=== PATIENT | male | born 1980 | race Caucasian/White ===

== ENCOUNTER → 2017-01-20 | Outpatient (CLI) | payer OTHER ==
--- NOTE | 2017-01-21 07:31 | MR ---
EXAMINATION TYPE: MR lumbar spine wo con DATE OF EXAM: 01/20/2017 COMPARISON: NONE HISTORY: Low Back pain [id number] TECHNIQUE: T1 and T2 axial and sagittal images of the lumbar spine are submitted. FINDINGS: There is no abnormal signal seen within the visualized spinal cord or paraspinal soft tissu es. Subcentimeter tiny nodule right adrenal gland likely related to benign adenoma. At L1-2 there is no disc herniation, degenerative disc disease, canal stenosis, or foraminal encroach ment. At L2-3 there is mild degenerative disc disease. No disc herniation or canal stenosis. Neural foramin a patent. Schmorl's node involving superior endplate L3 At L3-4 there is degenerative disc disease but no canal stenosis. Mild hypertrophic change of the fac ets. Neural foramina patent At L4-5 there is degenerative disc disease with mild hypertrophic change of the facets. No Canal sten osis or foraminal encroachment. Mild broad-based central disc bulging. At L5-S1 there is degenerative disc disease with mild central disc bulging but no canal stenosis or f oraminal encroachment. Schmorl's node superior endplate L5. IMPRESSION: 1. Suggestion of annular tear and right lateral disc bulging L5-S1 with mild facet arthropathy and mi ld right-sided foraminal encroachment. No Canal stenosis. 2. Broad-based central disc bulging L4-L5 with no canal stenosis or foraminal encroachment. 3. Multilevel degenerative disc disease. 4 subcentimeter tiny nodule right adrenal gland likely relat ed to adenoma
== END | disposition home or self-care (01) ==
LOC: RADMRIMAIN 16:38
PROVIDERS: ATTEND Family Medicine
DX: M51.26 Other intervertebral disc displacement, lumbar region (principal); M51.36 Other intervertebral disc degeneration, lumbar region
CPT/HCPCS: 72148

== ENCOUNTER 2017-07-09 20:56 | Emergency (ER) | payer OTHER ==
[2017-07-09 21:01] VITALS: BP 146/83; PULSE 87; RESP 20; TEMP 97.5
[2017-07-09] MEDS ORDERED: ASPIRIN 81 MG PO STA (21:41)
[2017-07-09] MEDS ORDERED: NITROGLYCERIN OINT 1 INCH/GM PACKET TOPICAL STA (21:41)
--- NOTE | 2017-07-09 21:43 | ED ---
General Adult HPI - General Chief complaint: Arrhythmia/Palpitations Stated complaint: racing heart Time Seen by Provider: 07/09/17 21:00 Source: patient, RN notes reviewed Mode of arrival: ambulatory Limitations: no limitations - History of Present Illness Initial comments: This is a 37-year-old male who presents emergency department with past medical history significant for smoking. Patient states he has no significant family history of heart disease. Patient denies diabetes hypertension high cholesterol. Patient states about 5 hours prior to arrival he was complaining of pressure on the left lateral aspect of his chest. Patient denies any shortness of breath. Patient states he just doesn't feel right. Patient denies any diaphoresis patient denies any nausea. Patient denies any arm pain. Patient denies any headache patient denies lightheadedness dizziness or near syncopal episode. Patient denies any palpitations. Patient states his chest pressure that is never felt before and movement does not seem to make it worse. Patient denies any abdominal pain patient denies vomiting or diarrhea. Patient denies any recent fever chills or cough. Patient denies any leg swelling or calf pain - Related Data Home Medications Medication Instructions Recorded Confirmed Buprenorphine HCl/Naloxone HCl 1 film SL DAILY 07/09/17 07/09/17 [Suboxone 2 mg-0.5 mg Sl Film] Buprenorphine HCl/Naloxone HCl 1 film SL DAILY 07/09/17 07/09/17 [Suboxone 4 mg-1 mg Sl Film] Ibuprofen [Motrin] 800 mg PO TID PRN 07/09/17 07/09/17 QUEtiapine [SEROquel] 100 mg PO HS 07/09/17 07/09/17 Allergies Allergy/AdvReac Type Severity Reaction Status Date / Time No Known Allergies Allergy Verified 07/09/17 21:40 Review of Systems ROS Statement: Those systems with pertinent positive or pertinent negative responses have been documented in the HPI. ROS Other: All systems not noted in ROS Statement are negative. Past Medical History Past Medical History: No Reported History Additional Past Medical History / Comment(s): Pain in knees bilaterally History of Any Multi-Drug Resistant Organisms: None Reported Past Surgical History: No Surgical Hx Reported Past Psychological History: Anxiety Smoking Status: Current every day smoker Past Alcohol Use History: Occasional Past Drug Use History: Marijuana General Exam - General Exam Comments Initial Comments: GENERAL: Patient is well-developed and well-nourished. Patient is nontoxic and well- hydrated and is in mild distress. ENT: Neck is soft and supple. No significant lymphadenopathy is noted. Oropharynx is clear. Moist mucous membranes. Neck has full range of motion without eliciting any pain. EYES: The sclera were anicteric and conjunctiva were pink and moist. Extraocular movements were intact and pupils were equal round and reactive to light. Eyelids were unremarkable. PULMONARY: Unlabored respirations. Good breath sounds bilaterally. No audible rales rhonchi or wheezing was noted. CARDIOVASCULAR: There is a regular rate and rhythm without any murmurs gallops or rubs. ABDOMEN: Soft and nontender with normal bowel sounds. No palpable organomegaly was noted. There is no palpable pulsatile mass. SKIN: Skin is clear with no lesions or rashes and otherwise unremarkable. NEUROLOGIC: Patient is alert and oriented x3. Cranial nerves II through XII are grossly intact. Motor and sensory are also intact. Normal speech, volume and content. Symmetrical smile. MUSCULOSKELETAL: Normal extremities with adequate strength and full range of motion. No lower extremity swelling or edema. No calf tenderness. LYMPHATICS: No significant lymphadenopathy is noted PSYCHIATRIC: Normal psychiatric evaluation. Normal interpersonal interactions appears functionally intact in deals appropriately with others. No signs of depression. No signs of anxiety. Limitations: no limitations Course Vital Signs 07/09/17 20:57 Temperature 97.5 F L Pulse Rate 87 Respiratory 20 Rate Blood Pressure 146/83 O2 Sat by Pulse 100 Oximetry Medical Decision Making - Medical Decision Making EKG shows a normal sinus rhythm at 74 bpm NC interval 266 QRS on a 14 QT interval 392 QTC is 435 per patient's EKG shows no ST segment elevation or depression or T wave abnormalities are noted. Chest x-ray shows no acute abnormality. I spoke with the patient after his labs were back. Patient stated the Nitropaste seem to take away his pain. I told the patient I recommended highly that he stay in the emergency department however he stated he could not do that today. Patient states she can follow-up with his doctor on Monday. I again reiterated to the patient denies thought he needed to stay but he again said he could not and he will follow-up. Patient is aware that if he gets any more pain or difficulty breathing he would return immediately. - Lab Data Result diagrams: 07/09/17 21:40 07/09/17 21:40 Lab Results 07/09/17 07/09/17 07/09/17 Range/Units 21:40 21:40 21:40 WBC 8.5 (3.8-10.6) k/uL RBC 4.36 (4.30-5.90) m/uL Hgb 13.9 (13.0-17.5) gm/dL Hct 40.5 (39.0-53.0) % MCV 93.0 (80.0-100.0) fL MCH 31.8 (25.0-35.0) pg MCHC 34.2 (31.0-37.0) g/dL RDW 12.5 (11.5-15.5) % Plt Count 240 (150-450) k/uL Neutrophils % 43 % Lymphocytes % 47 % Monocytes % 5 % Eosinophils % 1 % Basophils % 1 % Neutrophils # 3.7 (1.3-7.7) k/uL Lymphocytes # 4.0 (1.0-4.8) k/uL Monocytes # 0.4 (0-1.0) k/uL Eosinophils # 0.1 (0-0.7) k/uL Basophils # 0.1 (0-0.2) k/uL PT (9.0-12.0) sec INR (<1.2) APTT (22.0-30.0) sec D-Dimer (<0.60) mg/L FEU Sodium 141 (137-145) mmol/L Potassium 4.2 (3.5-5.1) mmol/L Chloride 105 (98-107) mmol/L Carbon Dioxide 27 (22-30) mmol/L Anion Gap 9 mmol/L BUN 12 (9-20) mg/dL Creatinine 0.80 (0.66-1.25) mg/dL Est GFR (MDRD) Af Amer >60 (>60 ml/min/1.73 sqM) Est GFR (MDRD) Non-Af >60 (>60 ml/min/1.73 sqM) Glucose 86 (74-99) mg/dL Calcium 9.5 (8.4-10.2) mg/dL Magnesium 1.9 (1.6-2.3) mg/dL Total Bilirubin 0.3 (0.2-1.3) mg/dL AST 40 (17-59) U/L ALT 50 (21-72) U/L Alkaline Phosphatase 62 (38-126) U/L Total Creatine Kinase 311 H (55-170) U/L CK-MB (CK-2) 0.9 (0.0-2.4) ng/mL CK-MB (CK-2) Rel Index 0.3 Troponin I <0.012 (0.000-0.034) ng/mL Total Protein 6.6 (6.3-8.2) g/dL Albumin 4.2 (3.5-5.0) g/dL 07/09/17 Range/Units 21:40 WBC (3.8-10.6) k/uL RBC (4.30-5.90) m/uL Hgb (13.0-17.5) gm/dL Hct (39.0-53.0) % MCV (80.0-100.0) fL MCH (25.0-35.0) pg MCHC (31.0-37.0) g/dL RDW (11.5-15.5) % Plt Count (150-450) k/uL Neutrophils % % Lymphocytes % % Monocytes % % Eosinophils % % Basophils % % Neutrophils # (1.3-7.7) k/uL Lymphocytes # (1.0-4.8) k/uL Monocytes # (0-1.0) k/uL Eosinophils # (0-0.7) k/uL Basophils # (0-0.2) k/uL PT 9.6 (9.0-12.0) sec INR 1.0 (<1.2) APTT 24.3 (22.0-30.0) sec D-Dimer 0.19 (<0.60) mg/L FEU Sodium (137-145) mmol/L Potassium (3.5-5.1) mmol/L Chloride (98-107) mmol/L Carbon Dioxide (22-30) mmol/L Anion Gap mmol/L BUN (9-20) mg/dL Creatinine (0.66-1.25) mg/dL Est GFR (MDRD) Af Amer (>60 ml/min/1.73 sqM) Est GFR (MDRD) Non-Af (>60 ml/min/1.73 sqM) Glucose (74-99) mg/dL Calcium (8.4-10.2) mg/dL Magnesium (1.6-2.3) mg/dL Total Bilirubin (0.2-1.3) mg/dL AST (17-59) U/L ALT (21-72) U/L Alkaline Phosphatase (38-126) U/L Total Creatine Kinase (55-170) U/L CK-MB (CK-2) (0.0-2.4) ng/mL CK-MB (CK-2) Rel Index Troponin I (0.000-0.034) ng/mL Total Protein (6.3-8.2) g/dL Albumin (3.5-5.0) g/dL Disposition Clinical Impression: Unstable angina Disposition: Left Against Medical Advice Referrals: Ronaldo Felder MD [Primary Care Provider] - 1-2 days Time of Disposition: 22:54
[2017-07-09 21:58] LABS: Basophils # (A) 0.1 k/uL (0-0.2); Basophils % (A) 1 %; Eosinophils # (A) 0.1 k/uL (0-0.7); Eosinophils % (A) 1 %; HCT 40.5 % (39.0-53.0); HGB 13.9 gm/dL (13.0-17.5); Lymphocytes % (A) 47 %; MCH 31.8 pg (25.0-35.0); MCHC 34.2 g/dL (31.0-37.0); Mean Platelet Volume 6.7; Monocytes # (A) 0.4 k/uL (0-1.0); Monocytes % (A) 5 %; Neutrophils # (A) 3.7 k/uL (1.3-7.7); Neutrophils % (A) 43 %; Platelet Count 240 k/uL (150-450); RBC 4.36 m/uL (4.30-5.90); RDW 12.5 % (11.5-15.5); WBC 8.5 k/uL (3.8-10.6)
[2017-07-09 22:10] LABS: ALT 50 U/L (21-72); AST 40 U/L (17-59); Albumin 4.2 g/dL (3.5-5.0); Alkaline Phosphatase 62 U/L (38-126); Anion Gap 9 mmol/L; Blood Urea Nitrogen 12 mg/dL (9-20); Calcium 9.5 mg/dL (8.4-10.2); Carbon Dioxide 27 mmol/L (22-30); Chloride 105 mmol/L (98-107); Glucose 86 mg/dL (74-99); Magnesium 1.9 mg/dL (1.6-2.3); Potassium 4.2 mmol/L (3.5-5.1); Sodium 141 mmol/L (137-145); Total Bilirubin 0.3 mg/dL (0.2-1.3); Total Protein 6.6 g/dL (6.3-8.2)
[2017-07-09 22:14] LABS: D-Dimer 0.19 mg/L FEU (<0.60)
--- NOTE | 2017-07-09 22:14 | XR ---
EXAMINATION TYPE: XR chest 2V DATE OF EXAM: 07/09/2017 COMPARISON: NONE INDICATION: Chest pain TECHNIQUE: Frontal and lateral views of the chest are obtained. FINDINGS: The heart size is normal. The pulmonary vasculature is normal. The lungs are clear. There is good is Are present. EKG leads overlie the chest. IMPRESSION: 1. No acute pulmonary process.
[2017-07-09 22:24] LABS: Partial Thromboplastin Time 24.3 sec (22.0-30.0); Prothrombin Time 9.6 sec (9.0-12.0)
[2017-07-09 22:28] LABS: Creatine Kinase 311 U/L (55-170)
[2017-07-09 22:40] LABS: Creatine Kinase MB 0.9 ng/mL (0.0-2.4); Troponin I <0.012 ng/mL (0.000-0.034)
== END 2017-07-09 22:59 | disposition left against medical advice (07) ==
LOC: EC 20:56
DX: I20.0 Unstable angina (principal); F17.200 Nicotine dependence, unspecified, uncomplicated; Z79.899 Other long term (current) drug therapy
CPT/HCPCS: 36415; 71046; 80053; 82550; 82553; 83735; 84484; 85025; 85379; 85610; 85730; 93005; 99285

== ENCOUNTER 2019-02-19 00:28 | Emergency (ER) | payer OTHER ==
[2019-02-19 00:34] VITALS: RESP 18
--- NOTE | 2019-02-19 01:05 | XR ---
EXAMINATION TYPE: XR tibia fibula RT DATE OF EXAM: 02/19/2019 COMPARISON: NONE HISTORY: Fall. Pain. TECHNIQUE: 4 views FINDINGS: I see no fracture nor dislocation. Tibia and fibula appear intact. Joint spaces are normal. There are small plantar and Achilles calcaneal spurs. Tibia and fibula appear intact. IMPRESSION: Calcaneal spurring. No fracture seen.
[2019-02-19] MEDS ORDERED: ACET/COD 300 MG/30 MG STARTER PACK 6 TAB BTL PO STA (01:32)
--- NOTE | 2019-02-19 01:35 | ED ---
Lower Extremity Injury HPI - General Chief Complaint: Extremity Injury, Lower Stated Complaint: Fall, Leg Pain Time Seen by Provider: 02/19/19 01:17 Source: patient, RN notes reviewed Mode of arrival: wheelchair Limitations: no limitations - History of Present Illness Initial Comments: This a 38-year-old male presents emergency department with chief complaint of right leg pain. Patient states that the pain started after he fell going up the stairs. Patient states his handlebar broke. Patient states he twisted his leg but states he felt a pop in his upper calf region. He states he has no lower pain by his ankle or knee upper pain by his knee. Patient states that his calf is swollen and tender. Patient states she's had a tear in the past and feels very similar. Patient offers no other complaints no head injury no back pain no upper extremity injury. - Related Data Home Medications Medication Instructions Recorded Confirmed Buprenorphine HCl/Naloxone HCl 1 film SL DAILY 07/09/17 07/09/17 [Suboxone 2 mg-0.5 mg Sl Film] Buprenorphine HCl/Naloxone HCl 1 film SL DAILY 07/09/17 07/09/17 [Suboxone 4 mg-1 mg Sl Film] Ibuprofen [Motrin] 800 mg PO TID PRN 07/09/17 07/09/17 QUEtiapine [SEROquel] 100 mg PO HS 07/09/17 07/09/17 Allergies Allergy/AdvReac Type Severity Reaction Status Date / Time No Known Allergies Allergy Verified 02/19/19 00:34 Review of Systems ROS Statement: Those systems with pertinent positive or pertinent negative responses have been documented in the HPI. ROS Other: All systems not noted in ROS Statement are negative. Past Medical History Past Medical History: No Reported History Additional Past Medical History / Comment(s): Pain in knees bilaterally History of Any Multi-Drug Resistant Organisms: None Reported Past Surgical History: No Surgical Hx Reported Past Psychological History: Anxiety, Depression Smoking Status: Current every day smoker Past Alcohol Use History: None Reported Past Drug Use History: Marijuana General Exam Limitations: no limitations General appearance: alert, in no apparent distress Head exam: Present: atraumatic, normocephalic, normal inspection Respiratory exam: Present: normal lung sounds bilaterally. Absent: respiratory distress, wheezes, rales, rhonchi, stridor Cardiovascular Exam: Present: regular rate, normal rhythm, normal heart sounds. Absent: systolic murmur, diastolic murmur, rubs, gallop, clicks Extremities exam: Present: other (Right calf there is noted swelling, Achilles is nontender no distal leg pain normal Trevino's test, leg is neurovascularly intact no ecchymosis no erythema) Course Vital Signs 02/19/19 00:31 Temperature 97.6 F Pulse Rate 89 Respiratory 18 Rate Blood Pressure 130/66 O2 Sat by Pulse 97 Oximetry Medical Decision Making - Medical Decision Making 38-year-old male presented for right leg pain and for a fall. Tib-fib x-ray is obtained which is unremarkable. Patient is noted swelling and tenderness over the calf do not believe that he has Achilles tendon injury. Patient hasn't right calf strain. Patient leg will be wrapped and will follow-up with orthopedics. He understands the importance of following up with orthopedics at this time. Disposition Clinical Impression: Strain of right gastrocnemius muscle Disposition: HOME SELF-CARE Condition: Stable Instructions (If sedation given, give patient instructions): Muscle Strain (ED) Additional Instructions: Please return to the Emergency Department if symptoms worsen or any other concerns. Is patient prescribed a controlled substance at d/c from ED?: No Referrals: Ronaldo Felder MD [Primary Care Provider] - 1-2 days Jose Antonio Olsen MD [STAFF PHYSICIAN] - 1-2 days Time of Disposition: 01:35
[2019-02-19 02:02] VITALS: BP 125/62; PULSE 85; TEMP 98
== END 2019-02-19 02:02 | disposition home or self-care (01) ==
LOC: EC 00:28
DX: S86.811A Strain of other muscle(s) and tendon(s) at lower leg level, right leg, initial encounter (principal); F32.9 Major depressive disorder, single episode, unspecified; F41.9 Anxiety disorder, unspecified; F17.200 Nicotine dependence, unspecified, uncomplicated; Z79.899 Other long term (current) drug therapy; Z87.828 Personal history of other (healed) physical injury and trauma; W10.9XXA Fall (on) (from) unspecified stairs and steps, initial encounter; Y93.01 Activity, walking, marching and hiking; Y92.009 Unspecified place in unspecified non-institutional (private) residence as the place of occurrence of the external cause
CPT/HCPCS: 99283

== ENCOUNTER 2019-02-23 22:59 | Emergency (ER) | payer OTHER ==
[2019-02-23 23:12] VITALS: BP 120/73; PULSE 85; RESP 18; TEMP 98
--- NOTE | 2019-02-23 23:35 | ED ---
Recheck HPI - General Chief Complaint: Extremity Injury, Lower Stated Complaint: leg pain Time Seen by Provider: 02/23/19 23:12 Source: patient, RN notes reviewed, old records reviewed Mode of arrival: wheelchair Limitations: no limitations - History of Present Illness Initial Comments: This is a 38-year-old male the ER for evaluation resents today for evaluation regards to recheck wound recheck and right calf injury recheck. Patient was diagnosed with muscle strain after a fall muscle strain after a fall a few days ago, he did return to work but has had significant increase in swelling, ecchymosis and discoloration of that right lower extremity. Patient denies any complaints no other injuries. Full range of motion of foot, he is able to ambu late has good feeling and sensation. Patient denies any other complaints MD Complaint: wound re-check (Recheck of Toradol calf muscle, strained cast muscle) -: days(s) Returns Today for: wound recheck Symptoms Since Prior Visit: worsening pain, worsening swelling Context: planned re-check Associated Symptoms: none Treatments Prior to Arrival: other - Related Data Home Medications Medication Instructions Recorded Confirmed Buprenorphine HCl/Naloxone HCl 1 film SL DAILY 07/09/17 07/09/17 [Suboxone 2 mg-0.5 mg Sl Film] Buprenorphine HCl/Naloxone HCl 1 film SL DAILY 07/09/17 07/09/17 [Suboxone 4 mg-1 mg Sl Film] Ibuprofen [Motrin] 800 mg PO TID PRN 07/09/17 07/09/17 QUEtiapine [SEROquel] 100 mg PO HS 07/09/17 07/09/17 Allergies Allergy/AdvReac Type Severity Reaction Status Date / Time No Known Allergies Allergy Verified 02/23/19 23:12 Review of Systems ROS Statement: Those systems with pertinent positive or pertinent negative responses have been documented in the HPI. ROS Other: All systems not noted in ROS Statement are negative. Past Medical History Past Medical History: No Reported History Additional Past Medical History / Comment(s): Pain in knees bilaterally History of Any Multi-Drug Resistant Organisms: None Reported Past Surgical History: No Surgical Hx Reported Past Psychological History: Anxiety, Depression Smoking Status: Current every day smoker Past Alcohol Use History: None Reported Past Drug Use History: Marijuana General Exam Limitations: no limitations General appearance: alert, in no apparent distress Head exam: Present: atraumatic, normocephalic, normal inspection Eye exam: Present: normal appearance, PERRL, EOMI. Absent: scleral icterus, conjunctival injection, periorbital swelling ENT exam: Present: normal exam, mucous membranes moist Neck exam: Present: normal inspection. Absent: tenderness, meningismus, lymphadenopathy Respiratory exam: Present: normal lung sounds bilaterally. Absent: respiratory distress, wheezes, rales, rhonchi, stridor Cardiovascular Exam: Present: regular rate, normal rhythm, normal heart sounds. Absent: systolic murmur, diastolic murmur, rubs, gallop, clicks GI/Abdominal exam: Present: soft, normal bowel sounds. Absent: distended, tenderness, guarding, rebound, rigid Extremities exam: Present: normal inspection, full ROM, normal capillary refill, other (Patient does have bruising significant of right lower extremity. He is neurovascularly intact). Absent: tenderness, pedal edema, joint swelling, calf tenderness Back exam: Present: normal inspection Neurological exam: Present: alert, oriented X3, CN II-XII intact Psychiatric exam: Present: normal affect, normal mood Skin exam: Present: warm, dry, intact, normal color. Absent: rash Course Vital Signs 02/23/19 23:10 Temperature 98 F Pulse Rate 85 Respiratory 18 Rate Blood Pressure 120/73 O2 Sat by Pulse 97 Oximetry - Reevaluation(s) Reevaluation #1: 02/23/19 23:33 Record prior ER visit reviewed Reevaluation #2: 02/23/19 23:33 Just given counseling warning signs for increasing stiffness or hardness of calf, no evidence of compartment syndrome currently Medical Decision Making - Medical Decision Making 38 male the ER for evaluation patient resents today for evaluation regards to right leg pain and swelling ecchymosis Strain. Patient can be discharged home Disposition Clinical Impression: Right calf pain, Strain of right gastrocnemius muscle Disposition: HOME SELF-CARE Condition: Good Instructions (If sedation given, give patient instructions): Muscle Strain (ED) Is patient prescribed a controlled substance at d/c from ED?: No Referrals: Ronaldo Felder MD [Primary Care Provider] - 1-2 days
== END 2019-02-23 23:52 | disposition home or self-care (01) ==
LOC: EC 22:59
DX: S86.111D Strain of other muscle(s) and tendon(s) of posterior muscle group at lower leg level, right leg, subsequent encounter (principal); F32.9 Major depressive disorder, single episode, unspecified; F17.200 Nicotine dependence, unspecified, uncomplicated; Z79.891 Long term (current) use of opiate analgesic; Z79.899 Other long term (current) drug therapy; W19.XXXD Unspecified fall, subsequent encounter
CPT/HCPCS: 99283

== ENCOUNTER 2023-02-24 04:33 | Emergency (ER) | payer OTHER ==
[2023-02-24 04:50] VITALS: RESP 18; TEMP 98.4
[2023-02-24] MEDS ORDERED: FLUCONAZOLE 150 MG TAB PO STA (05:16)
[2023-02-24] MEDS ORDERED: SULFAMETHOX-TMP 800-160MG 1 EACH TAB PO STA (05:18)
--- NOTE | 2023-02-24 05:27 | ED ---
Skin/Abscess/FB HPI - General Chief complaint: Skin/Abscess/Foreign Body Stated complaint: Something on head Time Seen by Provider: 02/24/23 04:54 Source: patient Mode of arrival: ambulatory Limitations: no limitations - History of Present Illness Initial comments: 's patient is 42-year-old man who presents to have evaluation of a area of his scalp that is swollen, tender, and has discharge. Patient states that he was concerned about infection. He has not noted any systemic symptoms, no fever or chills. MD complaint: discoloration Onset/Timin -: days(s) Tetanus Up to Date: yes Location: head Consistency: constant Improves with: none Worsens with: none Context: none Treatments Prior to Arrival: attempted to drain pus at home - Related Data Home Medications Medication Instructions Recorded Confirmed Ibuprofen [Motrin] 800 mg PO TID PRN 07/09/17 02/23/19 QUEtiapine [SEROquel] 50 mg PO HS 07/09/17 02/23/19 Previous Rx's Medication Instructions Recorded Fluconazole [Diflucan] 100 mg PO DAILY #28 tab 02/24/23 Sulfamethox-Tmp 800-160Mg [Bactrim 1 tab PO Q12HR #14 tab 02/24/23 DS 800-160 mg] Allergies Allergy/AdvReac Type Severity Reaction Status Date / Time No Known Allergies Allergy Verified 02/23/19 23:33 Review of Systems ROS Statement: Those systems with pertinent positive or pertinent negative responses have been documented in the HPI. ROS Other: All systems not noted in ROS Statement are negative. Constitutional: Denies: fever, chills Respiratory: Denies: cough, dyspnea Cardiovascular: Denies: chest pain Gastrointestinal: Denies: abdominal pain Skin: Reports: as per HPI, lesions, change in color Neurological: Denies: headache, weakness Past Medical History Past Medical History: No Reported History Additional Past Medical History / Comment(s): Pain in knees bilaterally History of Any Multi-Drug Resistant Organisms: None Reported Past Surgical History: No Surgical Hx Reported Past Psychological History: Anxiety, Depression Smoking Status: Current every day smoker Past Alcohol Use History: Occasional Past Drug Use History: Marijuana General Exam Limitations: no limitations General appearance: alert, in no apparent distress Head exam: Present: atraumatic, normocephalic Eye exam: Present: normal appearance. Absent: scleral icterus, conjunctival injection ENT exam: Present: normal oropharynx, TM's normal bilaterally Neck exam: Present: normal inspection, full ROM. Absent: tenderness, meningismus, lymphadenopathy Neurological exam: Present: alert Skin exam: Present: warm, dry, other (The patient does have an approximately 2 x 3 cm area where the scalp is boggy, tender, there is some purulent drainage, and yellow crusting area) Course Vital Signs 02/24/23 02/24/23 04:37 06:16 Temperature 98.4 F Pulse Rate 83 81 Respiratory 18 18 Rate Blood Pressure 105/68 131/78 O2 Sat by Pulse 100 97 Oximetry Medical Decision Making - Medical Decision Making Patient's 42-year-old man presenting with what appears to be early area of Kerion though it may possibly be simple cellulitis. The patient is given antifungal and prescription and we discussed appropriate further care and follow-up. I did stress that this may lead to scarring and alopecia if it is not treated appropriately and the patient does express understanding and motivation. Discussed also having him follow with dermatology. Was pt. sent in by a medical professional or institution (, PA, SURVEY ANALYST, urgent care, hospital, or care home...) When possible be specific @ -[No] Did you speak to anyone other than the patient for history (EMS, parent, family, police, friend...)? What history was obtained from this source @ -[No] Did you review nursing and triage notes (agree or disagree)? Why? @ -[I reviewed and agree with nursing and triage notes] Were old charts reviewed (outside hosp., previous admission, EMS record, old EKG, old radiological studies, urgent care reports/EKG's, care home records)? Report findings @ -[No old charts were reviewed] Differential Diagnosis (chest pain, altered mental status, abdominal pain women, abdominal pain men, vaginal bleeding, weakness, fever, dyspnea, syncope, headache, dizziness, GI bleed, back pain, seizure, CVA, palpatations, mental health, musculoskeletal)? @ -[Differential diagnosis for the patient's rash includes small area of cellulitis versus Kerion EKG interpreted by me (3pts min.). @ -[ X-rays interpreted by me (1pt min.). @ -[None done] CT interpreted by me (1pt min.). @ -[None done] U/S interpreted by me (1pt. min.). @ -[None done] What testing was considered but not performed or refused? (CT, X-rays, U/S, labs)? Why? @ -[None] What meds were considered but not given or refused? Why? @ -[None] Did you discuss the management of the patient with other professionals (professionals i.e. Dr., PA, SURVEY ANALYST, lab, RT, psych nurse, social media assistant, construction trench digger, teacher, worldwide chief creative officer, disability case manager)? Give summary @ -[No] Was smoking cessation discussed for >3mins.? @ -[No] Was critical care preformed (if so, how long)? @ -[No] Were there social determinants of health that impacted care today? How? (Homelessness, low income, unemployed, alcoholism, drug addiction, transportation, low edu. Level, literacy, decrease access to med. care, shelter, rehab)? @ -[No] Was there de-escalation of care discussed even if they declined (Discuss DNR or withdrawal of care, Hospice)? DNR status @ -[No] What co-morbidities impacted this encounter? (DM, HTN, Smoking, COPD, CAD, Cancer, CVA, ARF, Chemo, Hep., AIDS, mental health diagnosis, sleep apnea, morbid obesity)? @ -[None] Was patient admitted / discharged? Hospital course, mention meds given and route, prescriptions, significant lab abnormalities, going to OR and other pertinent info. @ -[Discharged, see above Undiagnosed new problem with uncertain prognosis? @ -[No] Drug Therapy requiring intensive monitoring for toxicity (Heparin, Nitro, Insulin, Cardizem)? @ -[No] Were any procedures done? @ -[No] Diagnosis/symptom? @ -[Acute kerion Acute, or Chronic, or Acute on Chronic? @ -[default] Uncomplicated (without systemic symptoms) or Complicated (systemic symptoms)? @ -[Uncomplicated Side effects of treatment? @ -[No] Exacerbation, Progression, or Severe Exacerbation? @ -[No] Poses a threat to life or bodily function? How? (Chest pain, [place], [place], pneumonia, PE, COPD, DKA, ARF, appy, cholecystitis, CVA, Diverticulitis, Homicidal, Suicidal, threat to staff... and all critical care pts) @ -[No] Disposition Clinical Impression: Nikki Disposition: HOME SELF-CARE Condition: Good Instructions (If sedation given, give patient instructions): Skin Yeast Infection (ED) Prescriptions: Sulfamethox-Tmp 800-160Mg [Bactrim DS 800-160 mg] 1 tab PO Q12HR #14 tab Fluconazole [Diflucan] 100 mg PO DAILY #28 tab Is patient prescribed a controlled substance at d/c from ED?: No Referrals: Ronaldo Felder MD [Primary Care Provider] - 1-2 days Forms: Work/School Release
[2023-02-24 06:25] VITALS: BP 131/78; PULSE 81
== END 2023-02-24 06:17 | disposition home or self-care (01) ==
LOC: EC 04:33
DX: B35.0 Tinea barbae and tinea capitis (principal); F17.200 Nicotine dependence, unspecified, uncomplicated; F12.90 Cannabis use, unspecified, uncomplicated; F41.9 Anxiety disorder, unspecified; F32.A Depression, unspecified; Z79.899 Other long term (current) drug therapy
CPT/HCPCS: 87070; 87077; 87186; 87205; 99282

== ENCOUNTER 2023-04-30 14:08 | Emergency (ER) | payer OTHER ==
[2023-04-30] MEDS ORDERED: HALOPERIDOL LACTATE 5 MG/ML 1 ML VIAL IM PRN (15:21)
[2023-04-30] MEDS ORDERED: LORazepam 2 MG/ML INJ IM PRN (15:24)
[2023-04-30 17:44] LABS: Amphetamine Screen,Urine Detected (NotDetected); Barbiturate Screen,Urine Not Detected (NotDetected); Benzodiazepines Screen,Urine Detected (NotDetected); Cocaine Screen,Urine Not Detected (NotDetected); Methadone Screen, Urine Not Detected (NotDetected); Opiate Screen,Urine Detected (NotDetected); Oxycodone Screen, Urine Not Detected (NotDetected); Phencyclidine Screen,Urine Not Detected (NotDetected); Tricyclic Antidepressant,Urine Not Detected (NotDetected); Urn Cannabinoid Scrn Detected (NotDetected)
[2023-04-30 18:06] LABS: Appearance,Urine Clear (Clear); Bilirubin,Urine Negative (Negative); Blood,Urine Negative (Negative); Color,Urine Colorless; Glucose,Urine (UA) Negative (Negative); Ketones,Urine Negative (Negative); Leukocyte Esterase,Urine Negative (Negative); Nitrite,Urine Negative (Negative); PH, Urine 6.5 (5.0-8.0); Protein,Urine Negative (Negative); Specific Gravity,Urine <1.005 (1.001-1.035); Urobilinogen,Urine <2.0 mg/dL (<2.0)
--- NOTE | 2023-04-30 20:05 | ED ---
General Adult HPI - General Chief complaint: Psychiatric Symptoms Stated complaint: Mental Health Time Seen by Provider: 04/30/23 14:29 Source: patient, police, RN notes reviewed, old records reviewed Mode of arrival: ambulatory Limitations: altered mental status - History of Present Illness Initial comments: Patient is a 43-year-old male presents emergency Department for mental health evaluation. Was brought in in place custody. Patient has a history of methamphetamine abuse. Patient has been delusional, believes that someone is after him and shot him, either the [employer] or [employer] or possibly cartels. Upon entering the room, patient does instruct me to identify myself is not working for the [employer]. Denies any recent drug use. Denies any other acute complaints at this time. Denies being delusional. Denies having hallucinations. Denies any visual or auditory hallucinations. Denies any suicidal or homicidal ideations, attempts, plans. Patient was petitioned by police. Presents for further evaluation. - Related Data Home Medications Medication Instructions Recorded Confirmed Buprenorphine HCl/Naloxone HCl 1 film SL DAILY 04/30/23 04/30/23 [Suboxone 2 mg-0.5 mg Sl Film] Allergies Allergy/AdvReac Type Severity Reaction Status Date / Time No Known Allergies Allergy Verified 04/30/23 14:23 Review of Systems ROS Statement: Those systems with pertinent positive or pertinent negative responses have been documented in the HPI. Review of Systems: CONST: Denies fever EYES: Denies blurry vision ENT: Denies nasal congestion C/V: Denies Chest pain RESP: Denies shortness of breath GI: Denies abdominal pain : Denies dysuria SKIN: Denies rash. MSK: Denies joint pain. NEURO: Denies headache PSYCH: Denies suicidal and homicidal ideations/plans/attempts. Denies visual or auditory hallucinations. ROS Other: All systems not noted in ROS Statement are negative. Past Medical History Past Medical History: No Reported History Additional Past Medical History / Comment(s): Pain in knees bilaterally History of Any Multi-Drug Resistant Organisms: None Reported Date of last positivie culture/infection: 02/24/23 MDRO Source:: Head Past Surgical History: No Surgical Hx Reported Past Psychological History: Anxiety, Depression Smoking Status: Current every day smoker Past Alcohol Use History: Occasional Past Drug Use History: Marijuana General Exam - General Exam Comments Initial Comments: General: Appears anxious. Disheveled. Seems to be having delusions. HEAD: Normal with no signs of head trauma. EYES: PERRLA, EOMI, conjunctiva normal, no discharge. ENT: Hearing grossly intact, normal oropharynx. RESPIRATORY: Clear breath sounds bilaterally. No wheezes, rales, or rhonchi. C/V: Regular rate and rhythm. S1 and S2 auscultated, no edema, peripheral pulses 2+ and intact throughout ABD: Abd is soft, nontender, nondistended EXT: Normal range of motion, no obvious deformity SKIN: No rashes or lesions observed on exposed skin. NEURO: Alert and oriented x 4. Limitations: altered mental status Course Vital Signs 04/30/23 14:18 Temperature 98.8 F Pulse Rate 109 H Respiratory 18 Rate Blood Pressure 140/73 O2 Sat by Pulse 96 Oximetry Medical Decision Making - Medical Decision Making Was pt. sent in by a medical professional or institution (ZARI Paul, BURRER MACHINE, urgent care, hospital, or custodial...) When possible be specific @ -No Did you speak to anyone other than the patient for history (EMS, parent, family, police, friend...)? What history was obtained from this source @ -Police provided the patient's acute past medical history. Did you review nursing and triage notes (agree or disagree)? Why? @ -I reviewed and agree with nursing and triage notes Were old charts reviewed (outside hosp., previous admission, EMS record, old EKG, old radiological studies, urgent care reports/EKG's, custodial records)? Report findings @ -No old charts were reviewed Differential Diagnosis (chest pain, altered mental status, abdominal pain women, abdominal pain men, vaginal bleeding, weakness, fever, dyspnea, syncope, headache, dizziness, GI bleed, back pain, seizure, CVA, palpatations, mental health, musculoskeletal)? @ -Differential Mental Health Depression, anxiety, bipolar, psychosis, schizophrenia, borderline personality, situational depression, adjustment disorder, behavioral disorder, brain tumor, malingering, substance abuse, encephalopathy, medication reaction, dementia, hypothyroidism, degenerative neurologic disorder, lupus.... This is not meant to be all-inclusive list EKG interpreted by me (3pts min.). @ -None known X-rays interpreted by me (1pt min.). @ -None done CT interpreted by me (1pt min.). @ -None done U/S interpreted by me (1pt. min.). @ -None done What testing was considered but not performed or refused? (CT, X-rays, U/S, labs)? Why? @ -None What meds were considered but not given or refused? Why? @ -None Did you discuss the management of the patient with other professionals (professionals i.e. ., PA, BURRER MACHINE, lab, RT, psych nurse, social service worker, automotive upholsterer, teacher, state wildlife officer, case aide)? Give summary @ -EPS notified of the consult. [facility] contacted me informing patient will likely be transferred for psychiatric admission. Was smoking cessation discussed for >3mins.? @ -No Was critical care preformed (if so, how long)? @ -No Were there social determinants of health that impacted care today? How? (Homelessness, low income, unemployed, alcoholism, drug addiction, transportation, low edu. Level, literacy, decrease access to med. care, shelter, r ehab)? @ -No Was there de-escalation of care discussed even if they declined (Discuss DNR or withdrawal of care, Hospice)? DNR status @ -No What co-morbidities impacted this encounter? (DM, HTN, Smoking, COPD, CAD, Cancer, CVA, ARF, Chemo, Hep., AIDS, mental health diagnosis, sleep apnea, morbid obesity)? @ -None Was patient admitted / discharged? Hospital course, mention meds given and route, prescriptions, significant lab abnormalities, going to OR and other pertinent info. @ -Based on the patient's presentation and physical exam, presents for psychiatric evaluation in place custody. Patient was petitioned. He was placed in green scrubs. Sitter was ordered. Patient's vital signs are within acceptable limits. BAT is 0. UDS is positive for opiates, amphetamines, benzos, marijuana. At this time, patient is medically cleared for evaluation by psychiatry. Disposition is pending psychiatric evaluation. EPS is notified. [facility] did notify me that patient will be a psychiatric transfer to another facility. Requested a clinical certificate which was completed by myself. Patient is a mental health board in the ER until transfer. Undiagnosed new problem with uncertain prognosis? @ -No Drug Therapy requiring intensive monitoring for toxicity (Heparin, Nitro, Insulin, Cardizem)? @ -No Were any procedures done? @ -No Diagnosis/symptom? @ -Encounter for psychiatric evaluation, delusions, polysubstance abuse Acute, or Chronic, or Acute on Chronic? @ -Acute Uncomplicated (without systemic symptoms) or Complicated (systemic symptoms)? @ -Complicated Side effects of treatment? @ -No Exacerbation, Progression, or Severe Exacerbation? @ -No Poses a threat to life or bodily function? How? (Chest pain, [place], [place], pneumonia, PE, COPD, DKA, ARF, appy, cholecystitis, CVA, Diverticulitis, Homicidal, Suicidal, threat to staff... and all critical care pts) @ -Possibly - Lab Data Lab Results 04/30/23 04/30/23 Range/Units 15:59 15:59 Urine Color Colorless Urine Appearance Clear (Clear) Urine pH 6.5 (5.0-8.0) Ur Specific [place] <1.005 (1.001-1.035) Urine Protein Negative (Negative) Urine Glucose (UA) Negative (Negative) Urine Ketones Negative (Negative) Urine Blood Negative (Negative) Urine Nitrite Negative (Negative) Urine Bilirubin Negative (Negative) Urine Urobilinogen <2.0 (<2.0) mg/dL Ur Leukocyte Esterase Negative (Negative) Urine Opiates Screen Detected H (NotDetected) Ur Oxycodone Screen Not Detected (NotDetected) Urine Methadone Screen Not Detected (NotDetected) Ur Propoxyphene Screen Not Detected (NotDetected) Ur Barbiturates Screen Not Detected (NotDetected) U Tricyclic Antidepress Not Detected (NotDetected) Ur Phencyclidine Scrn Not Detected (NotDetected) Ur Amphetamines Screen Detected H (NotDetected) U Methamphetamines Scrn Detected H (NotDetected) U Benzodiazepines Scrn Detected H (NotDetected) Urine Cocaine Screen Not Detected (NotDetected) U Marijuana (THC) Screen Detected H (NotDetected) Disposition Clinical Impression: Psychosis, Paranoia, Delusions, Encounter for psychiatric assessment, Polysub stance abuse Disposition: TRANSFER TO PSYCH HOSP/UNIT Condition: Stable Referrals: Ronaldo Felder MD [Primary Care Provider] - 1-2 days
[2023-04-30 20:54] LABS: Basophils % (A) 0 %; Eosinophils # (A) 0.1 k/uL (0-0.7); Eosinophils % (A) 1 %; HCT 39.6 % (39.0-53.0); HGB 13.7 gm/dL (13.0-17.5); Lymphocytes # (A) 2.1 k/uL (1.0-4.8); Lymphocytes % (A) 22 %; MCH 32.7 pg (25.0-35.0); MCHC 34.5 g/dL (31.0-37.0); MCV 94.6 fL (80.0-100.0); Mean Platelet Volume 7.2; Monocytes # (A) 0.6 k/uL (0-1.0); Monocytes % (A) 7 %; Neutrophils # (A) 6.2 k/uL (1.3-7.7); Neutrophils % (A) 68 %; Platelet Count 265 k/uL (150-450); RBC 4.18 m/uL (4.30-5.90); RDW 12.6 % (11.5-15.5); WBC 9.2 k/uL (3.8-10.6)
[2023-04-30 20:59] LABS: ALT 44 U/L (4-49); AST 50 U/L (17-59); African American GFR (CKD) >90 (>60 ml/min/1.73 sqM); Albumin 4.3 g/dL (3.5-5.0); Alkaline Phosphatase 97 U/L (38-126); Anion Gap 11 mmol/L; Blood Urea Nitrogen 16 mg/dL (9-20); Calcium 9.3 mg/dL (8.4-10.2); Carbon Dioxide 25 mmol/L (22-30); Chloride 98 mmol/L (98-107); Glucose 86 mg/dL (74-99); Non-African American GFR(CKD) >90 (>60 ml/min/1.73 sqM); Sodium 134 mmol/L (137-145); Total Bilirubin 0.6 mg/dL (0.2-1.3)
[2023-05-01 06:07] VITALS: TEMP 98.7
[2023-05-01 09:18] VITALS: BP 130/76; PULSE 100; RESP 17
[2023-05-01] MEDS ORDERED: LORazepam 1 MG TAB PO STA (09:28)
== END 2023-05-01 19:30 ==
LOC: EC 14:08
DX: F22 Delusional disorders (principal); F19.10 Other psychoactive substance abuse, uncomplicated; F17.200 Nicotine dependence, unspecified, uncomplicated; F12.90 Cannabis use, unspecified, uncomplicated; Z20.822 Contact with and (suspected) exposure to COVID-19
CPT/HCPCS: 36415; 80053; 80306; 81003; 82075; 85025; 87635; 99285

== ENCOUNTER 2023-05-17 01:26 | Emergency (ER) | payer OTHER ==
[2023-05-17] MEDS ORDERED: LIDOCAINE 4% PATCH TOPICAL ONE (01:45)
[2023-05-17] MEDS ORDERED: KETOROLAC 15 MG/ML 1 ML VIAL IM STA (01:45)
[2023-05-17 01:50] VITALS: TEMP 97.5
--- NOTE | 2023-05-17 03:07 | ED ---
SOB HPI - General Chief Complaint: Shortness of Breath Stated Complaint: Broken ribs Time Seen by Provider: 05/17/23 01:35 Source: patient Mode of arrival: wheelchair Limitations: no limitations - History of Present Illness Initial Comments: 43-year-old male presenting with chief complaint of right-sided rib pain. Patient states that he was arrested on 05/01 and had an injury to the ribs at that time, he was then admitted for inpatient psychiatric management and states that he had continued pain throughout the stay. He admits to pain with deep breaths. Pain is located on the right lower side, worse with range of motion. No fever, chills, cough, congestion, nausea, vomiting, palpitations, lower extremity swelling. Patient is also requesting STI testing, he denies any dysuria, discharge, rash, abdominal pain. - Related Data Home Medications Medication Instructions Recorded Confirmed Buprenorphine HCl/Naloxone HCl 1 film SL DAILY 04/30/23 04/30/23 [Suboxone 2 mg-0.5 mg Sl Film] Previous Rx's Medication Instructions Recorded Azithromycin [Zithromax Z Pack] 1 tab PO DIRECTED #6 tab 05/18/23 Allergies Allergy/AdvReac Type Severity Reaction Status Date / Time No Known Allergies Allergy Verified 05/17/23 01:32 Review of Systems ROS Statement: Those systems with pertinent positive or pertinent negative responses have been documented in the HPI. ROS Other: All systems not noted in ROS Statement are negative. Past Medical History Past Medical History: No Reported History Additional Past Medical History / Comment(s): Pain in knees bilaterally History of Any Multi-Drug Resistant Organisms: None Reported Date of last positivie culture/infection: 02/24/23 MDRO Source:: Head Past Surgical History: No Surgical Hx Reported Past Psychological History: Anxiety, Depression Smoking Status: Current every day smoker, Vaper Past Alcohol Use History: Occasional Past Drug Use History: Marijuana General Exam Limitations: no limitations General appearance: alert, in no apparent distress Head exam: Present: atraumatic, normocephalic, normal inspection Eye exam: Present: normal appearance Neck exam: Present: normal inspection Respiratory exam: Present: normal lung sounds bilaterally, chest wall tenderness. Absent: respiratory distress, wheezes, rales, rhonchi, stridor Cardiovascular Exam: Present: regular rate, normal rhythm, normal heart sounds. Absent: systolic murmur, diastolic murmur, rubs, gallop, clicks Extremities exam: Absent: pedal edema Neurological exam: Present: alert, oriented X3 Psychiatric exam: Present: normal affect, normal mood Skin exam: Present: warm, dry Course Vital Signs 05/17/23 05/17/23 01:29 03:03 Temperature 97.5 F L Pulse Rate 122 H 96 Respiratory 20 18 Rate Blood Pressure 99/56 104/62 O2 Sat by Pulse 99 98 Oximetry Medical Decision Making - Medical Decision Making Was pt. sent in by a medical professional or institution (, ZARI, PET COUNSELOR, urgent care, hospital, or snf...) When possible be specific @ -No Did you speak to anyone other than the patient for history (EMS, parent, family, police, friend...)? What history was obtained from this source @ -No Did you review nursing and triage notes (agree or disagree)? Why? @ -I reviewed and agree with nursing and triage notes Were old charts reviewed (outside hosp., previous admission, EMS record, old EKG, old radiological studies, urgent care reports/EKG's, snf records)? Report findings @ -No old charts were reviewed Differential Diagnosis (chest pain, altered mental status, abdominal pain women, abdominal pain men, vaginal bleeding, weakness, fever, dyspnea, syncope, headache, dizziness, GI bleed, back pain, seizure, CVA, palpatations, mental health, musculoskeletal)? @ -Differential includes rib fracture, muscle strain, pneumonia, pneumothorax, this is not an all inclusive list EKG interpreted by me (3pts min.). @ -As above X-rays interpreted by me (1pt min.). @ -X-ray shows minimal airspace disease noted within the lower lungs. This may be infectious in nature. No visualized rib fracture detected. Consider cross sectional imaging if there is further concern. CT interpreted by me (1pt min.). @ -None done U/S interpreted by me (1pt. min.). @ -None done What testing was considered but not performed or refused? (CT, X-rays, U/S, labs)? Why? @ -None What meds were considered but not given or refused? Why? @ -None Did you discuss the management of the patient with other professionals (professionals i.e. , ZARI, PET COUNSELOR, lab, RT, psych nurse, social worker delinquency prevention, pilot boat captain, teacher, boat officer, case finisher)? Give summary @ -No Was smoking cessation discussed for >3mins.? @ -No Was critical care preformed (if so, how long)? @ -No Were there social determinants of health that impacted care today? How? (Homelessness, low income, unemployed, alcoholism, drug addiction, transportation, low edu. Level, literacy, decrease access to med. care, longterm, rehab)? @ -No Was there de-escalation of care discussed even if they declined (Discuss DNR or withdrawal of care, Hospice)? DNR status @ -No What co-morbidities impacted this encounter? (DM, HTN, Smoking, COPD, CAD, Cancer, CVA, ARF, Chemo, Hep., AIDS, mental health diagnosis, sleep apnea, morbid obesity)? @ -None Was patient admitted / discharged? Hospital course, mention meds given and route, prescriptions, significant lab abnormalities, going to OR and other pertinent info. @ -43-year-old male presenting with chief complaint of rib pain. This occurred after an encounter with the police. No shortness of breath. Patient is also requesting STI testing. Testing is sent out. While waiting for results of the chest x-ray the patient became agitated and verbally aggressive. He did not want to wait any further and signed out AGAINST MEDICAL ADVICE. He is able to make his own decisions. When the chest x-ray comes back shows minimal airspace disease noted within the lower lungs which may be infectious in nature and no rib fracture. Patient is sent a prescription for azithromycin. Undiagnosed new problem with uncertain prognosis? @ -No Drug Therapy requiring intensive monitoring for toxicity (Heparin, Nitro, Insulin, Cardizem)? @ -No Were any procedures done? @ -No Diagnosis/symptom? @ -Rib pain Acute, or Chronic, or Acute on Chronic? @ -Acute Uncomplicated (without systemic symptoms) or Complicated (systemic symptoms)? @ -uncomplicated Side effects of treatment? @ -No Exacerbation, Progression, or Severe Exacerbation? @ -No Poses a threat to life or bodily function? How? (Chest pain, [place], [place], pneumonia, PE, COPD, DKA, ARF, appy, cholecystitis, CVA, Diverticulitis, Homicidal, Suicidal, threat to staff... and all critical care pts) @ -Low likelihood - Lab Data Lab Results 05/17/23 05/17/23 Range/Units 01:48 01:48 Treponema pallidum Ab Nonreactive HIV-1 Antibody Non-Reactive (Non-Reactive) HIV Ag/Ab Interpret HIV p24 Antibody Non-Reactive (Non-Reactive) HIV-2 Antibody Non-Reactive (Non-Reactive) HIV P24 Antigen Non-Reactive (Non-Reactive) Disposition Clinical Impression: Rib pain Disposition: LEFT AGAINST MEDICAL ADVICE Condition: Undetermined Prescriptions: Azithromycin [Zithromax Z Pack] 1 tab PO DIRECTED #6 tab Referrals: Ronaldo Felder MD [Primary Care Provider] - 1-2 days Time of Disposition: 04:11
[2023-05-17 03:19] VITALS: BP 104/62; PULSE 96; RESP 18
--- NOTE | 2023-05-17 06:01 | XR ---
EXAM: SINGLE VIEW THE CHEST AND 2 VIEWS OF THE RIGHT RIBS CLINICAL HISTORY: ITS.REASON XR Reason: R sided rib pain TECHNIQUE: Single view the chest and 2 views of the right ribs were obtained. COMPARISON: 2 views of the chest July 09, 2017 IMPRESSION: 1. Minimal airspace disease noted within the lower lungs. This may be infectious in nature. 2. No visualized rib fracture detected. Consider cross-sectional imaging if there is further concern.
[2023-05-17 13:57] LABS: HIV 2 AB Non-Reactive (Non-Reactive); HIV AB P24 Non-Reactive (Non-Reactive); HIV P24 AG Non-Reactive (Non-Reactive)
[2023-05-18 15:06] LABS: C. trachomatis,PCR Negative (Negative); N. gonorrhoeae,PCR Negative (Negative)
== END 2023-05-17 04:12 | disposition left against medical advice (07) ==
LOC: EC 01:26
DX: R07.81 Pleurodynia (principal); F17.290 Nicotine dependence, other tobacco product, uncomplicated; F12.90 Cannabis use, unspecified, uncomplicated; Z86.59 Personal history of other mental and behavioral disorders; Z53.29 Procedure and treatment not carried out because of patient's decision for other reasons
CPT/HCPCS: 36415; 87491; 87591; 86780; 87390; 71101; 99285; 96372; J1885

== ENCOUNTER 2023-11-21 11:51 | Emergency (ER) | payer OTHER ==
[2023-11-21 12:02] VITALS: RESP 22; TEMP 98.5
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
[2023-11-21] MEDS: LORazepam 2 MG/ML INJ IV STA (12:24)
[2023-11-21 12:34] LABS: Basophils # (A) 0.1 k/uL (0-0.2); Basophils % (A) 1 %; Eosinophils # (A) 0.1 k/uL (0-0.7); Eosinophils % (A) 2 %; HCT 40.9 % (39.0-53.0); HGB 13.5 gm/dL (13.0-17.5); Lymphocytes % (A) 42 %; MCH 31.1 pg (25.0-35.0); MCV 94.2 fL (80.0-100.0); Mean Platelet Volume 7.6; Monocytes # (A) 0.6 k/uL (0-1.0); Monocytes % (A) 8 %; Neutrophils # (A) 3.2 k/uL (1.3-7.7); Neutrophils % (A) 44 %; Platelet Count 253 k/uL (150-450); RBC 4.34 m/uL (4.30-5.90); RDW 13.3 % (11.5-15.5); WBC 7.1 k/uL (3.8-10.6)
[2023-11-21 12:48] LABS: Acetaminophen <10.0 ug/mL; African American GFR (CKD) >90 (>60 ml/min/1.73 sqM); Alcohol <10 mg/dL; Anion Gap 6 mmol/L; Blood Urea Nitrogen 17 mg/dL (9-20); Calcium 9.5 mg/dL (8.4-10.2); Carbon Dioxide 28 mmol/L (22-30); Chloride 103 mmol/L (98-107); Glucose 100 mg/dL (74-99); Non-African American GFR(CKD) >90 (>60 ml/min/1.73 sqM); Salicylate <1.0 mg/dL; Sodium 137 mmol/L (137-145)
[2023-11-21 12:54] LABS: Magnesium 1.8 mg/dL (1.6-2.3); Potassium 4.9 mmol/L (3.5-5.1)
[2023-11-21 13:01] VITALS: BP 129/76; PULSE 102
== END 2023-11-21 13:23 | disposition home or self-care (01) ==
LOC: EC 11:51
DX: Z13.39 Encounter for screening examination for other mental health and behavioral disorders (principal); F17.290 Nicotine dependence, other tobacco product, uncomplicated
CPT/HCPCS: 36415; 80048; 83735; 85025; 80143; 80179; 99284; 96374; G0480; J2060; 80320